=== PATIENT | male | born 1995 | race Caucasian/White ===

== ENCOUNTER 2020-10-06 02:23 | Emergency (ER) | payer OTHER ==
[~2020-10-06] VITALS: Ht 182.9 cm; Wt 82.1 kg
[2020-10-06 03:16] LABS: ABSOLUTE NEUTROPHILS 8.1 thou/uL (1.4-8.2); BASOPHILS 0.2 % (0.0-2.0); CREATININE 1.2 mg/dL (0.7-1.3); EOSINOPHILS 0.4 % (0.0-3.0); HEMOGLOBIN 16.8 gm/dL (14.0-18.0); LYMPHOCYTES 8.2 % (24.0-44.0); MCH 28.4 pg (26.0-34.0); MCV 86.1 fL (80.0-100.0); MONOCYTES 7.3 % (1.0-8.0); PLATELET COUNT 200 thou/uL (150-400); POLYS 83.9 % (36.0-66.0); POTASSIUM 3.6 mmol/L (3.5-5.1); RBC 5.92 mil/uL (4.50-6.00); RDW 13.4 % (10.5-14.5); WBC 9.7 thou/uL (4.0-11.0)
[2020-10-06 03:22] LABS: ALBUMIN 4.9 g/dL (3.4-5.0); TOTAL PROTEIN 9.6 g/dL (6.4-8.2)
[2020-10-06 03:53] VITALS: BP 144/95
== END 2020-10-06 03:55 | disposition home or self-care (01) ==
LOC: ER 02:23
PROVIDERS: Emergency Medicine
DX: R19.7 Diarrhea, unspecified (principal)